=== PATIENT | male | born 1975 | race Hispanic/Latino ===

== ENCOUNTER 2021-10-21 01:58 | Emergency (ER) | payer SELFPAY ==
[~2021-10-21] VITALS: Ht 175.3 cm; Wt 111.1 kg
[2021-10-21] MEDS ORDERED: INSULIN REGULAR, HUMAN 100 UNIT/1 ML SQ ONE (02:15)
[2021-10-21] MEDS ORDERED: SODIUM CHLORIDE 0.9% 1000ML 1,000 ML IV ONE (02:15)
[2021-10-21] MEDS ORDERED: INSULIN REGULAR, HUMAN 100 UNIT/1 ML ONE (02:35)
[2021-10-21 02:58] LABS: ANION GAP 18.4 mmol/L (8-16); CALCIUM 9.7 mg/dL (8.4-10.2); CREATININE, SERUM 1.36 mg/dL (0.72-1.25); POTASSIUM 4.4 mmol/L (3.5-5.1)
[2021-10-21] MEDS ORDERED: IBUPROFEN 400 MG TAB PO ONE (03:30)
[2021-10-21] MEDS ORDERED: IBUPROFEN 400 MG TAB ONE (03:36)
[2021-10-21 03:42] VITALS: BP 133/95
== END 2021-10-21 03:44 | disposition home or self-care (01) ==
LOC: ER 02:03
DX: K08.89 Other specified disorders of teeth and supporting structures (principal); E11.65 Type 2 diabetes mellitus with hyperglycemia; I10 Essential (primary) hypertension; E78.5 Hyperlipidemia, unspecified
CPT/HCPCS: 36415; 80048; 82948; 99283; J1817; J7030

== ENCOUNTER 2024-10-03 20:32 | Emergency (ER) | payer OTHER ==
[~2024-10-03] VITALS: Ht 172.7 cm; Wt 97.1 kg
[2024-10-03 21:29] LABS: BASOPHILS % 0.4 % (0.0-1.0); EOSINOPHILS # (AUTO) 0.4 (0.0-0.4); EOSINOPHILS % 5.3 % (0.0-6.0); HEMATOCRIT 45.6 % (38.2-49.6); LYMPHOCYTES # (AUTO) 3.4 (1.0-3.2); LYMPHOCYTES % 41.5 % (18.0-39.1); MEAN CORPUSCULAR HEMOGLOBIN 28.8 pg (28-32); MEAN CORPUSCULAR HGB CONC 32.9 g/dL (31-35); MEAN CORPUSCULAR VOLUME 87.7 fL (81-99); MONOCYTES # (AUTO) 0.9 (0.2-0.8); MONOCYTES % 10.6 % (4.4-11.3); NEUTROPHILS # (AUTO) 3.4 (2.1-6.9); PLATELET COUNT 258 x10e3/uL (140-360); RED CELL DISTRIBUTION WIDTH 12.5 % (11.7-14.4); WHITE BLOOD COUNT 8.14 x10e3/uL (4.8-10.8)
[2024-10-03 21:45] LABS: CORONAVIRUS COVID-19 AG NEGATIVE (NEGATIVE); INFLUENZA A AG NEGATIVE (NEGATIVE); INFLUENZA B AG NEGATIVE (NEGATIVE)
[2024-10-03 21:50] LABS: ALBUMIN 3.6 g/dL (3.5-5.0); BILIRUBIN,TOTAL 0.9 mg/dL (0.2-1.2); CALCIUM 9.1 mg/dL (8.4-10.2); CREATININE, SERUM 1.22 mg/dL (0.72-1.25); TOTAL PROTEIN 7.1 g/dL (6.5-8.1)
[2024-10-03] MEDS ORDERED: METFORMIN HCL500 MG PO (22:56)
[2024-10-03] MEDS ORDERED: ENALAPRIL MALE2.5 MG PO (22:56)
[2024-10-03] MEDS ORDERED: GLIPIZIDE5 MG PO (22:56)
[2024-10-03] MEDS: SODIUM CHLORIDE 0.9% 1000ML 1,000 ML IV ONE (23:03)
[2024-10-03 23:45] VITALS: PULSE 73; RESP 16; TEMP 98.6; O2SAT 97
== END 2024-10-03 23:56 | disposition home or self-care (01) ==
LOC: ER 20:50
DX: R00.2 Palpitations (principal); E11.65 Type 2 diabetes mellitus with hyperglycemia; Z91.148 Patient's other noncompliance with medication regimen for other reason; I10 Essential (primary) hypertension; E78.5 Hyperlipidemia, unspecified; G47.30 Sleep apnea, unspecified; Z11.52 Encounter for screening for COVID-19; R94.31 Abnormal electrocardiogram [ECG] [EKG]
CPT/HCPCS: 36415; 71045; 80053; 82948; 84484; 85025; 87428; 93005; 99284; J7030